=== PATIENT | female | born 1940 | race Caucasian/White ===

== ENCOUNTER 2020-09-07 05:49 | Day surgery (SDC) | payer MEDICARE, OTHER ==
[~2020-09-07] VITALS: Ht 157.5 cm; Wt 77.3 kg
[2020-09-07 06:23] LABS: CALCIUM 9.5 mg/dL (8.5-10.1); CARBON DIOXIDE 13.4 mmol/L (21.0-32.0); CREATININE - SERUM 5.3 mg/dL (0.6-1.3); POTASSIUM - SERUM 3.4 mmol/L (3.5-5.1)
[2020-09-07 06:26] LABS: BASOPHILS 0.3 % (0-2); EOSINOPHILS 3.1 % (0-7); HEMATOCRIT 24.4 % (36.0-48.0); IMMATURE GRANULOCYTES 0.2 % (0-5); LYMPHOCYTE ABS# 2.06 10x3/uL (1.18-3.74); LYMPHOCYTES 22.2 % (15-50); MCH 29.1 pg (26.0-34.0); MCHC 30.7 g/dL (31.0-37.0); MCV 94.6 fL (80.0-100.0); MEAN PLATELET VOLUME 11.5 fL (7.4-10.4); NEUTROPHIL ABS# 6.23 10x3/uL (1.56-6.13); NEUTROPHILS 67.2 % (40-80); PLATELET COUNT 256 10x3/uL (130-400); RBC 2.58 10x6/uL (4.00-5.40); RDW 15.9 % (11.5-14.5); WBC 9.3 10x3/uL (4.8-10.8)
[2020-09-07 06:39] LABS: HEMOGLOBIN 7.5 g/dL (12-16)
[2020-09-07 07:10] LABS: APTT 35.5 SECONDS (22.8-39.4); INR 1.28 (0.85-1.17); PROTIME 14.8 SECONDS (11.6-15.0)
[2020-09-07 08:03] VITALS: Ht 157.5 cm; Wt 77.3 kg
--- NOTE | 2020-09-07 16:42 | NUR ---
PT REPORTS FEELING LIKE SHE NEEDS TO URINATE AND BURNING. PER DAUGHTER PT HAS A PROLAPSED BLADDER AND HAS A PESTLE INSERTED AND CHRONICALLY DESCRIBES FEELING THE SAME WAY. USES BEDSIDE COMMODE FOR CLEAR YELLOW URINE MASSIMO 200 CC. ONE UNIT OF PRBC'S TRANSFUSED WITHOUT INCIDENT AND PT AND DAUGHTER WERE GIVEN DISCHARGE INSTRUCTIONS AND THEY VERBALIZED AN UNDERSTANDNG. IV D/C'D WITH CANNULA INTACT, PRESSURE HELD AND DRSG PLACED. INSTRUCTED TO TAKE HOME BP MEDS SOON SHE RETURNS HOME
== END 2020-09-07 12:25 | disposition home or self-care (01) ==
LOC: D.SP 05:49 → D.CT 08:00 → D.SP 12:25
PROVIDERS: Radiology Diagnostic Radiology; ATTEND Legal Medicine
DX: D64.89 Other specified anemias (principal); N18.5 Chronic kidney disease, stage 5; E11.610 Type 2 diabetes mellitus with diabetic neuropathic arthropathy; I10 Essential (primary) hypertension; Q61.2 Polycystic kidney, adult type